=== PATIENT | male | born 1965 | race Two or more races ===

== ENCOUNTER 2020-06-23 23:15 | Emergency (ER) | payer MEDICAID ==
[~2020-06-23] VITALS: Ht 165.1 cm; Wt 93.9 kg
--- NOTE | 2020-06-24 00:02 | NUR ---
covid/raid influenx=za swabs sent to lab
--- NOTE | 2020-06-24 00:51 | NUR ---
Patient results returned from lab, patient is COVID-19 positive.
[2020-06-24] MEDS ORDERED: DEXAMETHASONE 4 MG TABLET PO ONE (01:00)
[2020-06-24] MEDS ORDERED: AZITHROMYCIN 250 MG TABLET PO ONE (01:00)
[2020-06-24] MEDS ORDERED: DEXAMETHASONE 4 MG TABLET ONE (01:02)
[2020-06-24] MEDS ORDERED: AZITHROMYCIN 250 MG TABLET ONE (01:02)
--- NOTE | 2020-06-24 01:02 | NUR ---
Patient discharged to home in stable condition. Written and verbal after care instructions and RX x2 given. Patient verbalizes understanding of instructions. Stressed follow up or return to ER for worsening s/s. Patient ambulates with no problems, took all belongings with him.
[2020-06-24 01:04] VITALS: BP 130/82
== END 2020-06-24 01:02 | disposition home or self-care (01) ==
LOC: EDBD 23:19 → ER 23:19
DX: U07.1 COVID-19 (principal); J12.89 Other viral pneumonia; E11.9 Type 2 diabetes mellitus without complications; E78.5 Hyperlipidemia, unspecified; Z83.3 Family history of diabetes mellitus; Z82.49 Family history of ischemic heart disease and other diseases of the circulatory system
CPT/HCPCS: 71045; 87400; 87426; 99283; J8540; A4663; Q0144